=== PATIENT | male | born 1945 | race Hispanic/Latino ===

== ENCOUNTER 2021-04-18 11:29 | Observation (INO) | payer MEDICARE ==
--- NOTE | 2021-04-18 11:56 | Event Note ---
ED Screening Note ED Screening Note: Patient states that he was at his embedded systems engineer Dr. ta office today and was advised that his heart rate was 35 and need to be transported to the emergency room immediately Patient states that he was having weakness, numbness all over, shortness of breath He states that he does had a defibrillator/pacemaker placed a month and a half ago in [place] This initial assessment/diagnostic orders/clinical plan/treatment(s) is/are subject to change based on patients health status, clinical progression and re- assessment by fellow clinical providers in the ED. Further treatment and workup at subsequent clinical providers discretion. Patient/guardian urged not to elope from the ED as their condition may be serious if not clinically assessed and managed. Initial orders include: labs, ekg, xr, monitoring analyst pt placed in the MAIN ED on monitoring analyst for MD carpio
--- NOTE | 2021-04-18 12:18 | Emergency Department Report ---
ED General Adult HPI - General Chief complaint: Arrhythmia/Palpitations Stated complaint: HEART RATE TOO LOW Time Seen by Provider: 04/18/21 12:09 Source: patient Mode of arrival: Ambulatory Limitations: No Limitations - History of Present Illness Initial comments: Patient is 76 years old male with history of pacemaker, chronic kidney disease. Patient presented to the ER in his own private vehicle's after he saw his bowling ball grader and marker Dr. Gamble informed him that his heart rate is really low and he need to go to the ER. Patient heart rate was 38. Patient is complaining of mild shortness of breath. He stated that he went for a routine visit. Patient stated that his pacemaker was replaced last month at [facility]. Patient denied any chest pain. Severity scale (0 -10): 0 - Related Data Allergies Allergy/AdvReac Type Severity Reaction Status Date / Time acetaminophen [From Percocet] Allergy Dizziness Verified 10/27/15 14:01 oxycodone HCl [From Percocet] Allergy Dizziness Verified 10/27/15 14:01 ED Review of Systems ROS: Stated complaint: HEART RATE TOO LOW Other details as noted in HPI Comment: All other systems reviewed and negative Constitutional: denies: chills, fever Respiratory: shortness of breath. denies: cough, SOB with exertion, SOB at rest Cardiovascular: denies: chest pain, palpitations Gastrointestinal: denies: abdominal pain, nausea, vomiting Musculoskeletal: denies: back pain Neurological: denies: headache, weakness, numbness, paresthesias, abnormal gait ED Past Medical Hx - Past Medical History Hx Heart Attack/AMI: Yes (2010) - Surgical History Additional Surgical History: quad bypass - Social History Smoking Status: Never Smoker Substance Use Type: None ED Physical Exam - General Limitations: No Limitations General appearance: alert, in no apparent distress - Head Head exam: Present: atraumatic, normocephalic, normal inspection - Eye Eye exam: Present: normal appearance - ENT ENT exam: Present: normal exam, normal orophraynx, mucous membranes moist - Neck Neck exam: Present: normal inspection, full ROM. Absent: tenderness, meningismus - Respiratory Respiratory exam: Present: normal lung sounds bilaterally - Cardiovascular Cardiovascular Exam: Present: bradycardia. Absent: systolic murmur, diastolic murmur, rubs, gallop - GI/Abdominal GI/Abdominal exam: Present: soft, normal bowel sounds. Absent: distended, tenderness, guarding, rebound, rigid, organomegaly, mass, bruit, pulsatile mass, hernia - Extremities Exam Extremities exam: Present: normal inspection, full ROM, normal capillary refill. Absent: tenderness - Back Exam Back exam: Present: normal inspection, full ROM. Absent: CVA tenderness (R), CVA tenderness (L) - Neurological Exam Neurological exam: Present: alert, oriented X3, CN II-XII intact, normal gait, reflexes normal - Psychiatric Psychiatric exam: Present: normal mood - Skin Skin exam: Present: warm, intact, normal color ED Course Vital Signs 04/18/21 04/18/21 04/18/21 11:33 12:32 12:46 Temperature 94.4 F L Pulse Rate 38 L Respiratory 16 Rate Blood Pressure 136/53 [Right] O2 Sat by Pulse 98 97 96 Oximetry 04/18/21 04/18/21 04/18/21 13:00 13:16 13:30 Temperature Pulse Rate Respiratory Rate Blood Pressure [Right] O2 Sat by Pulse 97 97 97 Oximetry - Consultations Consultation #1: 04/18/21 13:40 I discussed the patient with Dr. Gamble, patient bowling ball grader and marker. He for me that he already talked to Dr. Connor, patient churn driller helper informed about the bradycardia and he stated that he will come and follow-up with the patient. ED Medical Decision Making - Lab Data Result diagrams: 04/18/21 12:01 04/18/21 12:01 - EKG Data -: EKG Interpreted by Me EKG shows normal: sinus rhythm Rate: bradycardia - Radiology Data Radiology results: report reviewed - Medical Decision Making Patient is 76 years old male with history of pacemaker, chronic kidney disease. Patient presented to the ER in his own private vehicle's after he saw his bowling ball grader and marker Dr. Gamble informed him that his heart rate is really low and he need to go to the ER. Patient heart rate was 38. Patient is complaining of mild shortness of breath. He stated that he went for a routine visit. Patient stated that his pacemaker was replaced last month at [facility]. Patient denied any chest pain. Patient heart rate remained above 50 in the emergency room. Labs reviewed and is unremarkable except for creatinine of 1.5. I discussed the patient with Dr. Gamble, patient bowling ball grader and marker and he stated that he already informed Dr. Connor, patient churn driller helper and stated that he will follow up with the patient. I discussed the patient with Dr. Lucero, he agreed to admit the patient to wv dical service for further management. Critical Care Time: Yes Critical care time in (mins) excluding proc time.: 35 Critical care attestation.: If time is entered above; I have spent that time in minutes in the direct care o f this critically ill patient, excluding procedure time. ED Disposition Clinical Impression: Symptomatic bradycardia Disposition: 02 SHORT TERM HOSPITAL Is pt being admited?: Yes Condition: Stable Referrals: KELSEY ANTONIO MD [Primary Care Provider] - 3-5 Days
[2021-04-18 12:49] LABS: Basophils # (Auto) 0.1 K/mm3 (0.0-0.1); Eosinophils # (Auto) 0.1 K/mm3 (0.0-0.4); Eosinophils % (Auto) 1.9 % (0.0-4.3); Lymphocytes # (Auto) 1.3 K/mm3 (1.2-5.4); Lymphocytes % (Auto) 22.4 % (13.4-35.0); Mean Corpuscular HGB Conc 30 % (32-34); Mean Corpuscular Volume 76 fl (84-94); Monocytes # (Auto) 0.5 K/mm3 (0.0-0.8); Platelet Count 129 K/mm3 (140-440); Red Blood Count 4.87 M/mm3 (3.65-5.03); Red Cell Distribution Width 17.2 % (13.2-15.2)
[2021-04-18 12:50] LABS: Hematocrit 37.1 % (35.5-45.6); Hemoglobin 11.3 gm/dl (11.8-15.2)
[2021-04-18 12:58] LABS: INR 1.01 (0.87-1.13)
[2021-04-18 12:59] LABS: Partial Thromboplastin Time 30.1 Sec. (24.2-36.6)
--- NOTE | 2021-04-18 13:05 | XRay Report ---
CHEST 1 VIEW INDICATION / CLINICAL INFORMATION: Shortness of breath.. COMPARISON: None. FINDINGS: SUPPORT DEVICES: Triple lead cardiac pacemaker overlies the left chest. HEART / MEDIASTINUM: Enlarged cardiac silhouette. LUNGS / PLEURA: Low lung volumes without evidence of focal pulmonary consolidation or edema. No pleur al effusion. No pneumothorax. ADDITIONAL FINDINGS: No significant additional findings. IMPRESSION: Low lung volumes without evidence of acute pulmonary process. Enlarged cardiac silhouette. Signer Name: Thee Moya MD Signed: 04/18/2021 1:01 PM Workstation Name: [id number]
[2021-04-18 13:09] LABS: Albumin 4.2 g/dL (3.9-5); Calcium 9.2 mg/dL (8.4-10.2)
--- NOTE | 2021-04-18 14:00 | History and Physical Report ---
History of Present Illness Chief complaint: I feel weak History of present illness: 76 YO Male with DM, OK, CAD S/P CABG, NSVT S/P Pacemaker placement, CKD 3A presents to ED for evaluation. Patient reports "I feel weak". Patient states that he has experienced generalized weakness over the past week with persistent symptoms over the same timeframe. Patient was seen and evaluated by his quartz miner and was found to have a heart rate in the 30s. Patient transported to [facility] via private vehicle for further care and evaluation of the aforementioned symptoms. The patient was seen and evaluated in the emergency department. All lab and imaging studies reviewed. The patient was found to have symptomatic bradycardia with a heart rate in the 30s, atrial fibrillation, PRABHAKAR. Patient admitted to telemetry and treated with supportive care. Electrophysiology team consulted in ED as per cardiology team for further evaluation as well as pacemaker interrogation. Patient denies fever, chills, chest pain, palpitation, productive cough, skin rash, recent ill contacts, known exposure to COVID-19. No prior admission for review. All medication listed at time of admission has been reconciled. Advanced care planning conducted in ED. Past History Past Medical History: acute OK, CAD, diabetes, renal failure Past Surgical History: CABG, Other (Pacemaker placement) Social history: . denies: smoking, alcohol abuse Family history: diabetes, hypertension Medications and Allergies Allergies Allergy/AdvReac Type Severity Reaction Status Date / Time acetaminophen [From Percocet] Allergy Dizziness Verified 10/27/15 14:01 oxycodone HCl [From Percocet] Allergy Dizziness Verified 10/27/15 14:01 Review of Systems Constitutional: no weight loss, no weight gain, no fever, no chills Ears, nose, mouth and throat: no ear pain, no tinnitis, no decreased hearing Cardiovascular: no chest pain, no palpitations, no rapid/irregular heart beat, no lightheadedness Respiratory: no cough, no cough with sputum, no excessive sputum, no hemoptysis Gastrointestinal: no abdominal pain, no nausea, no diarrhea, no constipation, no change in bowel habits Genitourinary Male: no hematuria, no flank pain, no discharge, no urinary frequency, no urinary hesitancy Rectal: no pain, no incontinence, no bleeding Musculoskeletal: no neck stiffness, no neck pain, no arm numbness/tingling, no low back pain, no shooting leg pain Integumentary: no rash, no pruritis, no sores, no wounds, no jaundice Neurological: no head injury, no paralysis, no numbness Psychiatric: no anxiety, no change in sleep habits, no change in appetite, no suicidal ideation, no disorientation Endocrine: no cold intolerance, no heat intolerance, no polydipsia, no polyuria, no excessive sweating, no flushing Hematologic/Lymphatic: no easy bruising, no easy bleeding, no lymphedema Allergic/Immunologic: no allergic rhinitis, no wheezing, no persistent infections, no angioedema Exam - Constitutional Vitals: Temp Pulse Resp BP Pulse Ox 94.4 F L 38 L 16 136/53 97 04/18/21 11:33 04/18/21 11:33 04/18/21 11:33 04/18/21 11:33 04/18/21 13:30 General appearance: Present: mild distress - EENT Eyes: Present: PERRL ENT: hearing intact, clear oral mucosa - Neck Neck: Present: supple, normal ROM - Respiratory Respiratory effort: normal Respiratory: bilateral: CTA - Cardiovascular Rhythm: other (Bradycardia) Heart Sounds: Present: S1 & S2. Absent: rub, click - Extremities Extremities: pulses symmetrical, No edema Peripheral Pulses: within normal limits - Abdominal General gastrointestinal: Present: soft, non-tender, non-distended, normal bowel sounds Male genitourinary: Present: normal - Integumentary Integumentary: Present: clear, warm, dry - Musculoskeletal Musculoskeletal: generalized weakness - Psychiatric Psychiatric: appropriate mood/affect, intact judgment & insight - Neurologic Neurologic: CNII-XII intact, moves all extremities HEART Score - HEART Score Troponin: Troponin T < 0.010 ng/mL (0.00-0.029) 04/18/21 12: Results - Labs CBC & Chem 7: 04/18/21 12:04/18/21 12:01 Labs: Abnormal lab results 04/18/21 04/18/21 Range/Units 12: 12: Hgb 11.3 L (11.8-15.2) gm/dl MCV 76 L (84-94) fl MCH 23 L (28-32) pg MCHC 30 L (32-34) % RDW 17.2 H (13.2-15.2) % Plt Count 129 L (140-440) K/mm3 [place] % (Auto) 9.0 H (0.0-7.3) % Sodium 136 L (137-145) mmol/L Carbon Dioxide 20 L (22-30) mmol/L BUN 27 H (9-20) mg/dL Creatinine 1.5 H (0.8-1.3) mg/dL Glucose 261 H (75-100) mg/dL AST 41 H (5-40) units/L Assessment and Plan - Patient Problems (1) Symptomatic bradycardia Current Visit: Yes Status: Acute Plan to address problem: Telemetry monitoring, supportive care, electrophysiology evaluation in a.m. (2) Atrial fibrillation Current Visit: Yes Status: Acute Qualifiers: Atrial fibrillation type: paroxysmal Qualified Code(s): I48.0 - Paroxysmal atrial fibrillation Plan to address problem: Cardiology team consulted, continue supportive care, rate currently controlled, further care and evaluation as per cardiology team. (3) Chronic kidney disease Current Visit: Yes Status: Acute Qualifiers: Chronic kidney disease stage: stage 3 (moderate) Plan to address problem: Nephrology team consulted, continue medical management. (4) DVT prophylaxis Current Visit: Yes Status: Acute Plan to address problem: SCD to bilateral lower extremities while in bed, patient is ambulatory (5) Advance care planning Current Visit: Yes Status: Acute Plan to address problem: Disease education conducted, care plan discussed, diagnoses discussed, prognosis discussed, patient is full code, patient acknowledges understanding and agree ment with care plan, +30 minutes.
[2021-04-18] MEDS ORDERED: ACETAMINOPHEN 325 MG TAB PO PRN (14:02)
[2021-04-18] MEDS ORDERED: HYDROmorphone 1 MG/1 ML INJ IV PRN (14:02)
[2021-04-18] MEDS ORDERED: oxyCODONE /ACETAMINOPHEN 5-325MG TAB PO PRN (14:02)
[2021-04-18] MEDS ORDERED: ONDANSETRON 4 MG/2 ML INJ IV PRN (14:02)
[2021-04-18] MEDS ORDERED: ALBUTEROL 2.5 MG/3 ML NEBU IH PRN (14:02)
--- NOTE | 2021-04-18 14:23 | Consultation ---
History of Present Illness Consult date: 04/18/21 Requesting physician: SRUTHI DUMONT Consult reason: bradycardia History of present illness: This patient is a 76-year-old male with a significant history of coronary artery disease s/p coronary artery bypass graft, DM, hyperlipidemia, V. tach s/p PPM placement. He is followed by Dr Connor with [facility] logistic specialist. Patient presents to [facility] ER from his general partner Dr. Shannon london. In office patient was found to have heart rate paced rhythm 30s with complaint of general weakness and fatigue. Cardiology is consulted for symptomatic bradycardia. At time of interview patient is in A. fib 80s and asymptomatic with no chest pain, shortness of breath, abdominal pain, N/V/D, recent illness or known exposure. Patient states he recently had his PPM replaced at [facility] on December 19, 2020. He said no issues or symptoms since that time. Echocardiogram - Date: 06/29/2019 LV chamber and wall dimensions are normal. The estimated left ventricle ejection fraction is 45-50%. There is increased left atrial pressure and Grade II diastolic dysfunction. LA chamber size is normal. RA chamber size is normal. There is trivial aortic regurgitation Cardiac catheterization - Date: 07/03/2019 LVEF 40-45%,100% proximal LAD,100% proximal circ,100% distal RCA with severe diffuse dustal disease,STOKES to OM patent,LUDA to LAD oatent,svg to d1 showed 50% stenosis and ulcerated 90% proximal stenosis in SVG to RCA,with successful placement of 3.0 x 15 Rueter stent with good result,coronary-cameral fistula of proximal RCA(it appars diffuse distal vessel disease noted)(cath done 07/03/2019). Past History Past Medical History: other (See HPI) Medications and Allergies Allergies Allergy/AdvReac Type Severity Reaction Status Date / Time acetaminophen [From Percocet] Allergy Dizziness Verified 10/27/15 14:01 oxycodone HCl [From Percocet] Allergy Dizziness Verified 10/27/15 14:01 Active Meds: Active Medications Acetaminophen (Acetaminophen 325 Mg Tab) 650 mg PO Q4H PRN PRN Reason: Pain MILD(1-3)/Fever >100.5/VELEZ Albuterol (Albuterol 2.5 Mg/3 Ml Nebu) 2.5 mg IH Q4HRT PRN PRN Reason: Shortness Of Breath Hydromorphone HCl (Hydromorphone 1 Mg/1 Ml Inj) 0.5 mg IV Q23H PRN PRN Reason: Pain , Severe (7-10) Ondansetron HCl (Ondansetron 4 Mg/2 Ml Inj) 4 mg IV Q8H PRN PRN Reason: Nausea And Vomiting Oxycodone/Acetaminophen (Oxycodone /Acetaminophen 5-325mg Tab) 1 tab PO Q16H PRN PRN Reason: Pain, Moderate (4-6) Sodium Chloride (Sodium Chloride 0.9% 10 Ml Flush Syringe) 10 ml IV BID LYNDSEY Sodium Chloride (Sodium Chloride 0.9% 10 Ml Flush Syringe) 10 ml IV PRN PRN PRN Reason: LINE FLUSH Review of Systems Constitutional: no weight loss, no weight gain, no fever, no chills, no sweats, no night sweats Ears, nose, mouth and throat: no ear pain, no ear discharge, no tinnitis Cardiovascular: no chest pain, no orthopnea, no palpitations, no rapid/irregular heart beat, no edema, no syncope Respiratory: no cough, no cough with sputum, no excessive sputum, no hemoptysis, no shortness of breath, no dyspnea on exertion Gastrointestinal: no abdominal pain, no nausea, no vomiting, no diarrhea Musculoskeletal: no neck stiffness, no neck pain, no shooting arm pain, no arm numbness/tingling, no low back pain, no shooting leg pain Integumentary: no rash, no pruritis, no redness, no sores, no wounds Neurological: weakness, numbness, no head injury, no transient paralysis, no pa ralysis, no parathesias, no tingling, no seizures, no syncope Psychiatric: no anxiety Endocrine: no cold intolerance, no heat intolerance Hematologic/Lymphatic: no easy bruising, no easy bleeding Allergic/Immunologic: no urticaria Physical Examination Last Vital Signs Temp 94.4 F L 04/18/21 11:33 Pulse 38 L 04/18/21 11:33 Resp 16 04/18/21 11:33 BP 136/53 04/18/21 11:33 Pulse Ox 97 04/18/21 13:30 General appearance: no acute distress HEENT: Positive: PERRL Neck: Positive: neck supple Cardiac: Positive: Reg Rate and Rhythm Lungs: Positive: Normal Exam Neuro: Positive: Grossly Intact Abdomen: Positive: Unremarkable, Soft Skin: Positive: Clear Musculoskeletal: No Fluid Collection, No Pain, Normal Range of Motion Extremities: Present: normal. Absent: edema Results 04/18/21 12:01 04/18/21 12:01 Cardiac Enzymes 04/18/21 Range/Units 12: AST 41 H (5-40) units/L Coagulation 04/18/21 Range/Units 12:01 PT 14.4 (12.2-14.9) Sec. INR 1.01 (0.87-1.13) APTT 30.1 (24.2-36.6) Sec. CBC 04/18/21 Range/Units 12:01 WBC 5.7 (4.5-11.0) K/mm3 RBC 4.87 (3.65-5.03) M/mm3 Hgb 11.3 L (11.8-15.2) gm/dl Hct 37.1 (35.5-45.6) % Plt Count 129 L (140-440) K/mm3 Lymph # (Auto) 1.3 (1.2-5.4) K/mm3 Thomas # (Auto) 0.5 (0.0-0.8) K/mm3 Eos # (Auto) 0.1 (0.0-0.4) K/mm3 Baso # (Auto) 0.1 (0.0-0.1) K/mm3 Comprehensive Metabolic Panel 04/18/21 Range/Units 12:01 Sodium 136 L (137-145) mmol/L Potassium 4.9 (3.6-5.0) mmol/L Chloride 99.6 (98-107) mmol/L Carbon Dioxide 20 L (22-30) mmol/L BUN 27 H (9-20) mg/dL Creatinine 1.5 H (0.8-1.3) mg/dL Glucose 261 H (75-100) mg/dL Calcium 9.2 (8.4-10.2) mg/dL AST 41 H (5-40) units/L ALT 29 (7-56) units/L Alkaline Phosphatase 46 (35-129) units/L Total Protein 6.9 (6.3-8.2) g/dL Albumin 4.2 (3.9-5) g/dL - Imaging and Cardiology Echo: report reviewed Cardiac cath: report reviewed EKG: report reviewed EKG interpretations - Telemetry EKG Rhythm: Paced Assessment and Plan Symptomatic bradycardia in setting of high degree AV block s/p PPM * [employer] sales account representative will interrogate device * Patient is currently chest pain-free and asymptomatic, heart rate 80s sinus rhythm. Pacing pads are in place with external pacemaker at bedside. * Home metoprolol is discontinued. Hold all AV katy blocking agents. * Dr. Jere Morgan, [facility] is consulted for EP. Acute on chronic kidney injury * Creatinine 1.5. No BARAK inhibitor/ARB in setting of acute kidney injury DVT prophylaxis * Heparin SQ Awaiting [employer] device interrogation. Will follow This patient was seen in conjunction with Dr Bubba Vivar who agrees with this assessment plan of care - Patient Problems (1) Pacemaker Current Visit: Yes Status: Acute (2) Coronary artery disease Current Visit: Yes Status: Acute (3) History of coronary artery bypass graft x 3 Current Visit: Yes Status: Acute (4) Chronic kidney disease Current Visit: Yes Status: Acute (5) Symptomatic bradycardia Current Visit: Yes Status: Acute
[2021-04-18] MEDS ORDERED: HEPARIN 5,000 UNIT/1 ML VIAL SUB-Q SCH (22:00)
[2021-04-19 04:08] VITALS: BP 128/49
[2021-04-19 05:22] LABS: Basophils % (Auto) 0.7 % (0.0-1.8); Eosinophils # (Auto) 0.1 K/mm3 (0.0-0.4); Eosinophils % (Auto) 1.8 % (0.0-4.3); Lymphocytes # (Auto) 1.3 K/mm3 (1.2-5.4); Lymphocytes % (Auto) 25.2 % (13.4-35.0); Mean Corpuscular HGB Conc 30 % (32-34); Mean Corpuscular Volume 76 fl (84-94); Monocytes # (Auto) 0.4 K/mm3 (0.0-0.8); Monocytes % (Auto) 8.2 % (0.0-7.3); Platelet Count 115 K/mm3 (140-440); Red Blood Count 4.66 M/mm3 (3.65-5.03); Red Cell Distribution Width 17.7 % (13.2-15.2)
[2021-04-19 05:35] LABS: Hematocrit 35.6 % (35.5-45.6); Hemoglobin 10.7 gm/dl (11.8-15.2)
[2021-04-19 05:44] LABS: Calcium 9.2 mg/dL (8.4-10.2)
--- NOTE | 2021-04-19 10:56 | Progress Note ---
Assessment and Plan Assessment and plan: Symptomatic bradycardia in the setting of high degree AV block Acute kidney injury on CKD Diabetes mellitus type 2 Hypertension Hyperlipidemia 04/19/2021. No BARAK inhibitor/ARB in setting of acute kidney injury. Awaiting [employer] device interrogation. Cardiology following. Check echocar diogram hold amiodarone and beta-cassy until cardiology evaluates. Resume all other home medications. Continue Accu-Cheks and sliding scale insulin. History Interval history: No new issues overnight. Hospitalist Physical - Constitutional Vitals: Temp Pulse Resp BP Pulse Ox 98.6 F 38 L 12 128/49 95 04/19/21 03:35 04/19/21 03:35 04/19/21 03:35 04/19/21 03:35 04/19/21 03:35 General appearance: Present: no acute distress - EENT Eyes: Present: PERRL, EOM intact ENT: hearing intact, clear oral mucosa, dentition normal - Neck Neck: Present: supple, normal ROM - Respiratory Respiratory effort: normal Respiratory: bilateral: CTA - Cardiovascular Rhythm: regular Heart Sounds: Present: S1 & S2. Absent: gallop, rub - Extremities Extremities: no ischemia, No edema, Full ROM - Abdominal General gastrointestinal: soft, non-tender, non-distended, normal bowel sounds - Integumentary Integumentary: Present: clear, warm, dry - Neurologic Neurologic: CNII-XII intact, moves all extremities HEART Score - HEART Score Troponin: Troponin T < 0.010 ng/mL (0.00-0.029) 04/18/21 12:01 Results - Labs CBC & Chem 7: 04/19/21 04:47 04/19/21 04:47 Labs: Laboratory Last Values WBC 5.1 K/mm3 (4.5-11.0) 04/19/21 04:47 RBC 4.66 M/mm3 (3.65-5.03) 04/19/21 04:47 Hgb 10.7 gm/dl (11.8-15.2) L 04/19/21 04:47 Hct 35.6 % (35.5-45.6) 04/19/21 04:47 MCV 76 fl (84-94) L 04/19/21 04:47 MCH 23 pg (28-32) L 04/19/21 04:47 MCHC 30 % (32-34) L 04/19/21 04:47 RDW 17.7 % (13.2-15.2) H 04/19/21 04:47 Plt Count 115 K/mm3 (140-440) L 04/19/21 04:47 Lymph % (Auto) 25.2 % (13.4-35.0) 04/19/21 04:47 [place] % (Auto) 8.2 % (0.0-7.3) H 04/19/21 04:47 Eos % (Auto) 1.8 % (0.0-4.3) 04/19/21 04:47 Baso % (Auto) 0.7 % (0.0-1.8) 04/19/21 04:47 Lymph # (Auto) 1.3 K/mm3 (1.2-5.4) 04/19/21 04:47 [place] # (Auto) 0.4 K/mm3 (0.0-0.8) 04/19/21 04:47 Eos # (Auto) 0.1 K/mm3 (0.0-0.4) 04/19/21 04:47 Baso # (Auto) 0.0 K/mm3 (0.0-0.1) 04/19/21 04:47 Seg Neutrophils % 64.1 % (40.0-70.0) 04/19/21 04:47 Seg Neutrophils # 3.3 K/mm3 (1.8-7.7) 04/19/21 04:47 PT 14.4 Sec. (12.2-14.9) 04/18/21 12:01 INR 1.01 (0.87-1.13) 04/18/21 12:01 APTT 30.1 Sec. (24.2-36.6) 04/18/21 12:01 Sodium 140 mmol/L (137-145) 04/19/21 04:47 Potassium 5.1 mmol/L (3.6-5.0) H 04/19/21 04:47 Chloride 104.0 mmol/L (98-107) 04/19/21 04:47 Carbon Dioxide 24 mmol/L (22-30) 04/19/21 04:47 Anion Gap 17 mmol/L 04/19/21 04:47 BUN 25 mg/dL (9-20) H 04/19/21 04:47 Creatinine 1.4 mg/dL (0.8-1.3) H 04/19/21 04:47 Estimated GFR 49 ml/min 04/19/21 04:47 BUN/Creatinine Ratio 18 % 04/19/21 04:47 Glucose 217 mg/dL (75-100) H 04/19/21 04:47 Calcium 9.2 mg/dL (8.4-10.2) 04/19/21 04:47 Magnesium 2.10 mg/dL (1.7-2.3) 04/18/21 12:01 Total Bilirubin 0.50 mg/dL (0.1-1.2) 04/18/21 12:01 AST 41 units/L (5-40) H 04/18/21 12:01 ALT 29 units/L (7-56) 04/18/21 12:01 Alkaline Phosphatase 46 units/L (35-129) 04/18/21 12:01 Total Creatine Kinase 69 units/L (55-170) 04/18/21 12:01 Troponin T < 0.010 ng/mL (0.00-0.029) 04/18/21 12:01 Total Protein 6.9 g/dL (6.3-8.2) 04/18/21 12:01 Albumin 4.2 g/dL (3.9-5) 04/18/21 12:01 Albumin/Globulin Ratio 1.6 % 04/18/21 12:01 TSH 2.860 mlU/mL (0.270-4.200) 04/18/21 12:01 Clemente/IV: Voiding Method Urinal Active Medications - Current Medications Current Medications: Generic Name Dose Route Start Last Admin Trade Name Freq PRN Reason Stop Dose Admin Acetaminophen 650 mg 04/18/21 14:02 Acetaminophen 325 Mg Tab PO Q4H PRN Pain MILD(1-3)/Fever >100.5/VELEZ Albuterol 2.5 mg 04/18/21 14:02 Albuterol 2.5 Mg/3 Ml Nebu IH Q4HRT PRN Shortness Of Breath Heparin Sodium (Porcine) 5,000 unit 04/18/21 22:00 04/18/21 23:26 Heparin 5,000 Unit/1 Ml Vial SUB-Q 5,000 unit Q12HR LYNDSEY Administration Hydromorphone HCl 0.5 mg 04/18/21 14:02 Hydromorphone 1 Mg/1 Ml Inj IV Q23H PRN Pain , Severe (7-10) Ondansetron HCl 4 mg 04/18/21 14:02 Ondansetron 4 Mg/2 Ml Inj IV Q8H PRN Nausea And Vomiting Oxycodone/Acetaminophen 1 tab 04/18/21 14:02 Oxycodone /Acetaminophen 5-325mg Tab PO Q16H PRN Pain, Moderate (4-6) Sodium Chloride 10 ml 04/18/21 22:00 04/18/21 23:09 Sodium Chloride 0.9% 10 Ml Flush Syringe IV 10 ml BID LYNDSEY Administration Sodium Chloride 10 ml 04/18/21 14:02 Sodium Chloride 0.9% 10 Ml Flush Syringe IV PRN PRN LINE FLUSH
--- NOTE | 2021-04-19 11:27 | Consultation ---
History of Present Illness - Reason for Consult Consult date: 04/19/21 chronic renal failure, hyperkalemia - History of Present Illness The patient is a 76 YO male known to our practice with h/o DM-2, HTN, MS, CAD S/P CABG, NSVT S/P Pacemaker placement and CKD 3a who presented to [facility] ED for evaluation of bradycardia. Patient was seen at our office and found to have heart rate in 30s. He reports feeling weak for the past week. Patient denies fever, chills, chest pain, palpitation, cough, skin rash, N, V, D, abd pain, leg swelling, recent ill contacts, known exposure to COVID-19. In the ED his initial heart rate was 36. Patient was admitted to telemetry for treatment of symptomatic bradycardia. Labs and imaging noted. Nephrology was consulted to manage CKD. Past History Past Medical History: acute MS, CAD, diabetes, heart failure, hypertension, renal failure Past Surgical History: CABG, Other (Pacemaker placement) Social history: . denies: smoking, alcohol abuse Family history: diabetes, hypertension Medications and Allergies Allergies Allergy/AdvReac Type Severity Reaction Status Date / Time oxycodone AdvReac combativeness, Verified 04/19/21 09:37 hallucinations oxycodone HCl [From Percocet] AdvReac combativeness, Verified 04/19/21 09:37 hallucinations Home Medications Medication Instructions Recorded Confirmed Last Taken Type Amiodarone [Cordarone 200 MG TAB] 400 mg PO QDAY 04/19/21 04/19/21 2 Days Ago History ~04/17/21 Aspirin EC [Halfprin EC] 81 mg PO QDAY 04/19/21 04/19/21 2 Days Ago History ~04/17/21 Atorvastatin [Lipitor Tab] 80 mg PO QHS 04/19/21 04/19/21 2 Days Ago History ~04/17/21 Clopidogrel [Plavix] 75 mg PO QDAY 04/19/21 04/19/21 2 Days Ago History ~04/17/21 Dapagliflozin Propanediol [Farxiga] 5 mg PO QDAY 04/19/21 04/19/21 2 Days Ago History ~04/17/21 Fenofibrate Nanocrystallized 48 mg PO QDAY 04/19/21 04/19/21 2 Days Ago History [Fenofibrate] ~04/17/21 Gabapentin [Neurontin] 300 mg PO TID 04/19/21 04/19/21 2 Days Ago History ~04/17/21 Insulin Aspart [Insulin Aspart 3 - 10 unit SQ TID 04/19/21 04/19/21 2 Days Ago History Flexpen] ~04/17/21 Insulin Glargine/Lixisenatide 15 - 30 units SQ QHS 04/19/21 04/19/21 2 Days Ago History [Soliqua 100 Unit-33 Mcg/ml Pen] ~04/17/21 Levothyroxine [Synthroid] 125 mcg PO QAM 04/19/21 04/19/21 2 Days Ago History ~04/17/21 Metoprolol Xl [Metoprolol 50 mg PO QDAY 04/19/21 04/19/21 2 Days Ago History SUCCINATE ER TAB] ~04/17/21 Nitroglycerin [Nitrostat] 0.4 mg SL Q5M PRN 04/19/21 04/19/21 2 Days Ago History ~04/17/21 glipiZIDE XL [Glucotrol Xl] 10 mg PO QAM 04/19/21 04/19/21 2 Days Ago History ~04/17/21 lisinopriL [Lisinopril] 10 mg PO QDAY 04/19/21 04/19/21 2 Days Ago History ~04/17/21 traMADoL [Ultram] 50 mg PO Q4HR PRN 04/19/21 04/19/21 2 Days Ago History ~04/17/21 Active Meds: Active Medications Acetaminophen (Acetaminophen 325 Mg Tab) 650 mg PO Q4H PRN PRN Reason: Pain MILD(1-3)/Fever >100.5/VELEZ Albuterol (Albuterol 2.5 Mg/3 Ml Nebu) 2.5 mg IH Q4HRT PRN PRN Reason: Shortness Of Breath Aspirin (Aspirin Ec 81 Mg Tab) 81 mg PO QDAY [facility] Clopidogrel Bisulfate (Clopidogrel 75 Mg Tab) 75 mg PO QDAY [facility] Fenofibrate (Fenofibrate 48 Mg Tab) 48 mg PO QDAY [facility] Gabapentin (Gabapentin 300 Mg Cap) 300 mg PO TID [facility] Glipizide (Glipizide Xl 10 Mg Tab) 10 mg PO QAM [facility] Heparin Sodium (Porcine) (Heparin 5,000 Unit/1 Ml Vial) 5,000 unit SUB-Q Q12HR [facility] Last Admin: 04/18/21 23:26 Dose: 5,000 unit Documented by: Hydromorphone HCl (Hydromorphone 1 Mg/1 Ml Inj) 0.5 mg IV Q23H PRN PRN Reason: Pain , Severe (7-10) Levothyroxine Sodium (Levothyroxine 125 Mcg Tab) 125 mcg PO QAM [facility] Lisinopril (Lisinopril 10 Mg Tab) 10 mg PO QDAY [facility] Miscellaneous Medication (Atorvastatin [Lipitor]) 80 mg PO QHS [facility] Nitroglycerin (Nitroglycerin 0.4 Mg Tab Subl) 0.4 mg SL Q5M PRN PRN Reason: Chest Pain Ondansetron HCl (Ondansetron 4 Mg/2 Ml Inj) 4 mg IV Q8H PRN PRN Reason: Nausea And Vomiting Oxycodone/Acetaminophen (Oxycodone /Acetaminophen 5-325mg Tab) 1 tab PO Q16H PRN PRN Reason: Pain, Moderate (4-6) Sodium Chloride (Sodium Chloride 0.9% 10 Ml Flush Syringe) 10 ml IV BID [facility] Last Admin: 04/18/21 23:09 Dose: 10 ml Documented by: Sodium Chloride (Sodium Chloride 0.9% 10 Ml Flush Syringe) 10 ml IV PRN PRN PRN Reason: LINE FLUSH Review of Systems All systems: negative Exam - Vital Signs Vital signs: Vital Signs Temp Pulse Resp BP Pulse Ox 94.4 F L 38 L 16 136/53 98 04/18/21 11:33 04/18/21 11:33 04/18/21 11:33 04/18/21 11:33 04/18/21 11:33 Results - Lab Results 04/19/21 04:47 04/19/21 04:47 Most recent lab results Calcium 9.2 mg/dL (8.4-10.2) 04/19/21 04:47 Magnesium 2.10 mg/dL (1.7-2.3) 04/18/21 12:01 Assessment and Plan 1. CKD stage 3: Known h/o CKD-3. Monitor renal function. Creatinine level at his baseline. Avoid nephrotoxic agents. Meds dosage based on GFR. 2. FEN: Mild Hyperkalemia, Kayexalate ordered, monitor. Monitor lytes and volume status. 3. Symptomatic bradycardia in setting of high degree AV block s/p PPM: Monitor Heart rate. Followed by Cards. 4. Coronary artery disease: H/o coronary artery bypass graft x 3. 5. Hypertension: Monitor BP and adjust meds as needed. 6. DM-2, uncontrolled: Monitor. 7. Microcytic Anemia, POA: Trend. Subjective: Patient was seen and examined at the bedside. Examination: General appearance: well-developed, appears stated age, no distress HEENT: atraumatic Neck: trachea midline Respiratory: ctab Heart: S1S2, no murmur Abdomen: soft, bowel sounds heard, NT Integumentary: no obvious rash Neurologic: AO, able to move extremities Ext: no edema noted
[2021-04-19] MEDS ORDERED: SODIUM POLYSTYRENE 15 GM/60 ML ORAL LIQD PO NR (11:30)
[2021-04-19] MEDS ORDERED: NITROGLYCERIN 0.4 MG TAB SUBL SL PRN (12:00)
[2021-04-19] MEDS ORDERED: GABAPENTIN 300 MG CAP PO SCH (14:00)
[2021-04-19] MEDS ORDERED: NON-FORMULARY EACH (Atorvastatin [Lipitor] 80 MG Tablet) PO SCH (22:00)
[2021-04-20] MEDS ORDERED: LEVOTHYROXINE 125 MCG TAB PO SCH (06:00)
[2021-04-20] MEDS ORDERED: CLOPIDOGREL 75 MG TAB PO SCH (10:00)
[2021-04-20] MEDS ORDERED: DAPAGLIFLOZIN (NF) PROPANEDIOL 5 MG TAB PO SCH (10:00)
[2021-04-20] MEDS ORDERED: FENOFIBRATE 48 MG TAB PO SCH (10:00)
[2021-04-20] MEDS ORDERED: ASPIRIN EC 81 MG TAB PO SCH (10:00)
[2021-04-20] MEDS ORDERED: LISINOPRIL 10 MG TAB PO SCH (10:00)
--- NOTE | 2021-04-20 10:18 | Electrocardiograph Report ---
[facility] Test Date: 2021-04-18 Test Time: 11:56:57 Pat Name: SHWETA SU Department: Room: A466 Gender: M Chest Painting Leader: JOELLEN : 1945 Requested By: COLLEEN CLARKE Order Number: [id number] Reading MD: Morena Dickinson Measurements Intervals [place] Rate: 57 P: 81 TX: 149 QRS: 0 QRSD: 148 T: QT: 444 QTc: 500 Interpretive Statements Ventricular pacemaker beats, consider pacemaker undersensing No previous ECG available for comparison Electronically Signed On 04-20-2021 10:18:11 EST by Morena Dickinson
--- NOTE | 2021-04-20 10:31 | Electrocardiograph Report ---
[facility] Test Date: 2021-04-19 Test Time: 12:12:29 Pat Name: SHWETA SU Department: Room: A466 1 Gender: M Builder Operator: [id number] : 1945 Requested By: VALENTINE WHITNEY Order Number: [id number] Reading MD: Morena Dickinson Measurements Intervals [place] Rate: 86 P: -54 SC: 215 QRS: 142 QRSD: 146 T: 147 QT: 258 QTc: 309 Interpretive Statements Atrial-sensed ventricular-paced complexes Compared to ECG 04/18/2021 11:56:57 No significant change Electronically Signed On 04-20-2021 10:30:31 EST by Morena Dickinson
--- NOTE | 2021-04-21 10:52 | Discharge Summary ---
Providers - Providers Date of Admission: 04/18/21 14:02 Date of discharge: 04/19/21 Attending physician: VALENTINE WHITNEY 04/18/21 13:37 Consult to Physician [CONS] Stat Comment: Consulting Provider: ANNELIESE HAYWOOD Physician Instructions: Reason For Exam: bradycardia 04/18/21 13:39 Consult to Physician [CONS] Stat Comment: Consulting Provider: ELMER VALLADARES Physician Instructions: Reason For Exam: bradycardia 04/18/21 14:48 Consult to Physician [CONS] Routine Comment: Consulting Provider: SANDRA MARTINEZ Physician Instructions: Reason For Exam: Cardiac Primary care physician: KELSEY ANTONIO Hospitalization Reason for admission: Bradycardia Condition: Stable Hospital course: This patient is a 76-year-old male with a significant history of coronary artery disease s/p coronary artery bypass graft, DM, hyperlipidemia, V. tach s/p PPM placement who is followed by Dr Haywood with [facility] technical support specialist. 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 In office, patient was found to have heart rate paced rhythm 30s with complaint of general weakness and fatigue. The patient was admitted with diagnosis of symptomatic bradycardia cardiology is consulted for symptomatic bradycardia, high degree AV block, atrial fibrillation, acute kidney injury on CKD, diabetes mellitus type 2, hypertension and hyperlipidemia. During the hospitalization, the patient was noted to be in A. fib 80s and asymptomatic with no chest pain, shortness of breath, abdominal pain, N/V/D, recent illness or known exposure. Patient stated he recently had his PPM replaced at [facility] on December 19, 2020. [employer] technical sales representative interrogated the device and reportedly no issues. The patient's home metoprolol was discontinued. All AV katy blocking agents were held. Cardiology consulted Dr. Jere Martinez for EP evaluation. However, patient reportedly was not going to be able to be seen until 3 PM. According to the nurses note, patient was upset and stated that he did not want to wait any longer for a physician and demanded to leave. Therefore, patient left AMA. Dedicated discharge time 35 minutes. Disposition: LEFT AGAINST MEDICAL ADVICE Final Discharge Diagnosis (Prints w/discharge instructions): Symptomatic bradycardia in the setting of high degree AV block s/p PPM, chronic kidney disease stage III, coronary artery disease, hyperkalemia, hypertension, diabetes mellitus type 2, anemia Core Measure Documentation - Palliative Care Palliative Care/ Comfort Measures: Not Applicable - Core Measures Any of the following diagnoses?: none Exam - Constitutional Vitals: Temp Pulse Resp BP Pulse Ox 98.6 F 38 L 12 128/49 98 04/19/21 03:35 04/19/21 03:35 04/19/21 03:35 04/19/21 03:35 04/19/21 09:00 Plan Follow up with: KELSEY ANTONIO MD [Primary Care Provider] - 3-5 Days Forms: AMA Form
== END 2021-04-19 13:30 | disposition left against medical advice (07) ==
LOC: ED 11:29 → 4A 14:02
PROVIDERS: ADMIT Internal Medicine; ATTEND Hospitalist
DX: R00.1 Bradycardia, unspecified (principal); I48.0 Paroxysmal atrial fibrillation; I13.0 Hypertensive heart and chronic kidney disease with heart failure and stage 1 through stage 4 chronic kidney disease, or unspecified chronic kidney disease; I50.9 Heart failure, unspecified; N18.31 Chronic kidney disease, stage 3a; E11.22 Type 2 diabetes mellitus with diabetic chronic kidney disease; D50.9 Iron deficiency anemia, unspecified; N17.9 Acute kidney failure, unspecified; I25.2 Old myocardial infarction; I25.10 Atherosclerotic heart disease of native coronary artery without angina pectoris; E78.5 Hyperlipidemia, unspecified; E87.5 Hyperkalemia; Z95.1 Presence of aortocoronary bypass graft; Z79.82 Long term (current) use of aspirin; Z79.4 Long term (current) use of insulin
CPT/HCPCS: 36415; 71045; 80048; 80053; 82550; 82962; 83735; 84443; 84484; 85025; 85610; 85730; 93005; 96372; 99291; G0378; J1644